=== PATIENT | male | born 1945 | race Caucasian/White ===

== ENCOUNTER 2023-09-21 07:53 | Inpatient (IN) | payer MEDICARE, BC ==
[2023-09-21] MEDS ORDERED: Glucagon,Human Recombinant 1 MG Vial IM PRN (14:59)
[2023-09-21] MEDS ORDERED: 50% Dextrose in Water 50 ML Syringe IVPUSH PRN (14:59)
[2023-09-21] MEDS ORDERED: Ampicillin 2 GM Vial IV SCH (15:00)
[2023-09-21] MEDS ORDERED: BETAMETHASONE VALERATE 0.1% TOP PRN (15:25)
[2023-09-21] MEDS: Ampicillin 2 GM in Sodium Chloride 0.9% 100 ML IV SCH (16:04)
[2023-09-21] MEDS: cefTRIAXone 2 GM Vial IVPUSH SCH (16:42)
[2023-09-21] MEDS ORDERED: Insulin Lispro 100 Unit/ML 3 ML KwikPen SUBCUT ONE (17:55)
[2023-09-21] MEDS: Cyclobenzaprine 10 MG Tab PO PRN (18:00)
[2023-09-21] MEDS: Insulin Lispro 100 Unit/ML 3 ML KwikPen SUBCUT SCH (18:01)
[2023-09-21] MEDS: Valsartan 40 MG Tab PO SCH (21:05)
[2023-09-21] MEDS: Melatonin 3 MG Tab PO SCH (21:06)
[2023-09-21] MEDS: Calcium Carbonate 500 MG Tablet PO SCH (21:06)
[2023-09-21] MEDS: Apixaban 5 MG Tab PO SCH (21:06)
[2023-09-21] MEDS: Simvastatin 20 MG Tab PO SCH (21:06)
[2023-09-21] MEDS: XYLITOL PO SCH (21:07)
[2023-09-21] MEDS: Pregabalin 25 MG Cap PO SCH (21:14)
[2023-09-21] MEDS ORDERED: Insulin Glargine,Human Rec. Analog 100 Units/ML 3 ML Pen SUBCUT ONE (21:17)
[2023-09-21] MEDS: Insulin Glargine,Human Rec. Analog 100 Units/ML 3 ML Pen SUBCUT SCH (21:19)
[2023-09-21] MEDS: Sodium Chloride 0.9% 10 ML Syringe IV SCH (21:32)
[2023-09-22] MEDS: Pantoprazole 40 MG Tab.CR PO SCH (05:06)
[2023-09-22] MEDS: Ferrous Sulfate 325 MG Tab PO SCH (08:12)
[2023-09-22] MEDS: Tamsulosin 0.4 MG Cap.ER PO SCH (08:12)
[2023-09-22] MEDS: Aspirin 81 MG Tab.EC PO SCH (08:12)
[2023-09-22] MEDS: amLODIPine 10 MG Tab PO SCH (08:13)
[2023-09-22] MEDS: Magnesium Oxide 400 MG Tab PO SCH (08:13)
[2023-09-22] MEDS: Allopurinol 100 MG Tab PO SCH (08:14)
[2023-09-22] MEDS: Cyanocobalamin (Vitamin B12) 500 MCG Tab PO SCH (08:14)
[2023-09-22] MEDS: Metoprolol Succinate 50 MG Tab.ER PO SCH (08:14)
[2023-09-22] MEDS: Cholecalciferol (Vitamin D3) 5,000 UNIT Cap PO SCH (08:14)
[2023-09-22] MEDS: Multivitamins with Iron/Calcium/Folic Acid/Minerals Tab PO SCH (08:14)
[2023-09-23] MEDS: Acetaminophen 500 MG Tab PO PRN (08:22)
[2023-09-23] MEDS: guaiFENesin 600 MG Tab.ER PO PRN (14:14)
[2023-09-24] MEDS: guaiFENesin 600 MG Tab.ER PO PRN (01:15)
[2023-09-26] MEDS: Furosemide 40 MG Tab PO PRN (06:23)
[2023-09-26] MEDS: Loperamide 2 MG Cap PO PRN (14:50)
[2023-09-26] MEDS: Saccharomyces Boulardii (Probiotic) 250 MG Cap PO SCH (16:04)
[2023-09-27 06:48] LABS: BASOPHILS PERCENT AUTO 0.8 % (0.3-3.8); EOSINOPHILS ABSOLUTE AUTO 0.1 x10-3/uL (0.0-0.6); EOSINOPHILS PERCENT AUTO 2.3 % (0.1-6.8); HEMATOCRIT 29.7 % (38.3-50.1); HEMOGLOBIN 9.8 g/dL (12.9-17.7); LYMPHOCYTES ABSOLUTE AUTO 0.9 x10-3/uL (0.5-4.5); LYMPHOCYTES PERCENT AUTO 15.1 % (15.8-45.3); MEAN CORPUSCULAR HEMOGLOBIN 30.7 pg (27.0-33.3); MEAN CORPUSCULAR HGB CONC 33.1 g/dL (28.7-35.3); MEAN CORPUSCULAR VOLUME 92.7 fL (80.8-98.7); MEAN PLATELET VOLUME 8.5 fL (6.7-11.0); MONOCYTES ABSOLUTE AUTO 0.6 x10-3/uL (0.0-1.2); MONOCYTES PERCENT AUTO 11.1 % (5.5-15.2); NEUTROPHILS ABSOLUTE AUTO 4.1 x10-3/uL (1.7-6.9); NEUTROPHILS PERCENT AUTO 70.7 % (40.3-71.8); PLATELET COUNT,PLT 134 x10(3)uL (117-477); RED BLOOD CELL COUNT 3.21 x10(6)uL (3.90-5.90); RED CELL DISTRIBUTION WIDTH 13.4 % (12.4-15.0); WHITE BLOOD CELL COUNT,WBC 5.9 x10-3/uL (3.2-10.1)
[2023-09-27 06:58] LABS: CREATININE 1.5 mg/dL (0.70-1.30); EST CRCL DRUG DOSING (CG) 46.94 mL/min
[2023-09-27] MEDS: Benzonatate 100 MG Cap PO PRN (08:45)
[2023-09-27] MEDS ORDERED: Saccharomyces Boulardii (Probiotic) 250 MG Cap PO SCH ×2 (09:00)
[2023-09-28] MEDS: XYLITOL PO PRN (21:29)
[2023-09-28] MEDS: [UNRECOGNIZED DRUG - OTHER] PO SCH (21:29)
[2023-09-29] MEDS: TART CHERRY EXTRACT 1200 MG PO SCH (08:14)
[2023-09-30] MEDS: Hydrocortisone 1% Crm 30 GM Tube TOP ONE (10:56)
[2023-09-30] MEDS ORDERED: Insulin Glargine,Human Rec. Analog 100 Units/ML 3 ML Pen SUBCUT ONE (21:02)
[2023-10-04 07:03] LABS: BASOPHILS PERCENT AUTO 0.4 % (0.3-3.8); EOSINOPHILS ABSOLUTE AUTO 0.2 x10-3/uL (0.0-0.6); EOSINOPHILS PERCENT AUTO 3.3 % (0.1-6.8); HEMATOCRIT 30.4 % (38.3-50.1); HEMOGLOBIN 10.1 g/dL (12.9-17.7); LYMPHOCYTES ABSOLUTE AUTO 1.4 x10-3/uL (0.5-4.5); LYMPHOCYTES PERCENT AUTO 19.3 % (15.8-45.3); MEAN CORPUSCULAR HEMOGLOBIN 30.9 pg (27.0-33.3); MEAN CORPUSCULAR HGB CONC 33.4 g/dL (28.7-35.3); MEAN CORPUSCULAR VOLUME 92.6 fL (80.8-98.7); MEAN PLATELET VOLUME 8.5 fL (6.7-11.0); MONOCYTES ABSOLUTE AUTO 0.6 x10-3/uL (0.0-1.2); MONOCYTES PERCENT AUTO 8.6 % (5.5-15.2); NEUTROPHILS ABSOLUTE AUTO 5.1 x10-3/uL (1.7-6.9); NEUTROPHILS PERCENT AUTO 68.4 % (40.3-71.8); PLATELET COUNT,PLT 175 x10(3)uL (117-477); RED BLOOD CELL COUNT 3.28 x10(6)uL (3.90-5.90); RED CELL DISTRIBUTION WIDTH 13.6 % (12.4-15.0); WHITE BLOOD CELL COUNT,WBC 7.4 x10-3/uL (3.2-10.1)
[2023-10-04 07:09] LABS: CREATININE 1.5 mg/dL (0.70-1.30); EST CRCL DRUG DOSING (CG) 46.94 mL/min
[2023-10-04] MEDS: Diclofenac Sodium 1% Gel 100 GM Tube TOP PRN (16:03)
[2023-10-09] MEDS ORDERED: Insulin Glargine,Human Rec. Analog 100 Units/ML 3 ML Pen SUBCUT ONE (20:50)
[2023-10-11 05:36] LABS: BASOPHILS PERCENT AUTO 0.5 % (0.3-3.8); EOSINOPHILS ABSOLUTE AUTO 0.4 x10-3/uL (0.0-0.6); EOSINOPHILS PERCENT AUTO 5.9 % (0.1-6.8); LYMPHOCYTES ABSOLUTE AUTO 1.1 x10-3/uL (0.5-4.5); LYMPHOCYTES PERCENT AUTO 17.8 % (15.8-45.3); MEAN CORPUSCULAR HEMOGLOBIN 30.9 pg (27.0-33.3); MEAN CORPUSCULAR HGB CONC 33.3 g/dL (28.7-35.3); MEAN CORPUSCULAR VOLUME 92.9 fL (80.8-98.7); MEAN PLATELET VOLUME 8.1 fL (6.7-11.0); MONOCYTES ABSOLUTE AUTO 0.6 x10-3/uL (0.0-1.2); MONOCYTES PERCENT AUTO 8.9 % (5.5-15.2); NEUTROPHILS ABSOLUTE AUTO 4.2 x10-3/uL (1.7-6.9); NEUTROPHILS PERCENT AUTO 66.9 % (40.3-71.8); PLATELET COUNT,PLT 142 x10(3)uL (117-477); RED CELL DISTRIBUTION WIDTH 14.2 % (12.4-15.0); WHITE BLOOD CELL COUNT,WBC 6.3 x10-3/uL (3.2-10.1)
[2023-10-11 05:40] LABS: CREATININE 1.5 mg/dL (0.70-1.30); EST CRCL DRUG DOSING (CG) 46.94 mL/min
[2023-10-11] MEDS ORDERED: traZODone 100 MG Tab PO PRN (07:51)
[2023-10-11] MEDS: traZODone 50 MG Tab PO PRN (22:32)
[2023-10-13] MEDS: Insulin Glargine,Human Rec. Analog 100 Units/ML 3 ML Pen SUBCUT SCH (08:37)
[2023-10-18 07:00] LABS: BASOPHILS PERCENT AUTO 0.5 % (0.3-3.8); EOSINOPHILS ABSOLUTE AUTO 0.4 x10-3/uL (0.0-0.6); EOSINOPHILS PERCENT AUTO 5.9 % (0.1-6.8); HEMOGLOBIN 9.8 g/dL (12.9-17.7); LYMPHOCYTES ABSOLUTE AUTO 1.3 x10-3/uL (0.5-4.5); MEAN CORPUSCULAR HEMOGLOBIN 31.3 pg (27.0-33.3); MEAN CORPUSCULAR HGB CONC 33.8 g/dL (28.7-35.3); MEAN CORPUSCULAR VOLUME 92.5 fL (80.8-98.7); MEAN PLATELET VOLUME 8.3 fL (6.7-11.0); MONOCYTES ABSOLUTE AUTO 0.6 x10-3/uL (0.0-1.2); MONOCYTES PERCENT AUTO 8.4 % (5.5-15.2); NEUTROPHILS ABSOLUTE AUTO 4.5 x10-3/uL (1.7-6.9); NEUTROPHILS PERCENT AUTO 66.2 % (40.3-71.8); PLATELET COUNT,PLT 169 x10(3)uL (117-477); RED BLOOD CELL COUNT 3.14 x10(6)uL (3.90-5.90); RED CELL DISTRIBUTION WIDTH 14.9 % (12.4-15.0); WHITE BLOOD CELL COUNT,WBC 6.8 x10-3/uL (3.2-10.1)
[2023-10-18 07:10] LABS: CREATININE 1.5 mg/dL (0.70-1.30); EST CRCL DRUG DOSING (CG) 46.94 mL/min
[2023-10-20] MEDS: Simvastatin 10 MG Tab PO SCH (20:38)
[2023-10-22 17:23] LABS: HIV 1,2 COMBO ANTIGEN/ANTIBODY Negative (Negative)
[2023-10-25 07:03] LABS: BASOPHILS PERCENT AUTO 0.6 % (0.3-3.8); EOSINOPHILS ABSOLUTE AUTO 0.4 x10-3/uL (0.0-0.6); EOSINOPHILS PERCENT AUTO 5.7 % (0.1-6.8); HEMATOCRIT 29.8 % (38.3-50.1); LYMPHOCYTES ABSOLUTE AUTO 1.3 x10-3/uL (0.5-4.5); LYMPHOCYTES PERCENT AUTO 19.3 % (15.8-45.3); MEAN CORPUSCULAR HEMOGLOBIN 30.4 pg (27.0-33.3); MEAN CORPUSCULAR HGB CONC 33.4 g/dL (28.7-35.3); MEAN CORPUSCULAR VOLUME 90.8 fL (80.8-98.7); MEAN PLATELET VOLUME 7.8 fL (6.7-11.0); MONOCYTES ABSOLUTE AUTO 0.5 x10-3/uL (0.0-1.2); MONOCYTES PERCENT AUTO 7.6 % (5.5-15.2); NEUTROPHILS ABSOLUTE AUTO 4.3 x10-3/uL (1.7-6.9); NEUTROPHILS PERCENT AUTO 66.8 % (40.3-71.8); PLATELET COUNT,PLT 161 x10(3)uL (117-477); RED BLOOD CELL COUNT 3.28 x10(6)uL (3.90-5.90); RED CELL DISTRIBUTION WIDTH 15.3 % (12.4-15.0); WHITE BLOOD CELL COUNT,WBC 6.5 x10-3/uL (3.2-10.1)
[2023-10-25 07:13] LABS: CREATININE 1.6 mg/dL (0.70-1.30); EST CRCL DRUG DOSING (CG) 34.94 mL/min
[2023-10-25] MEDS ORDERED: Insulin Glargine,Human Rec. Analog 100 Units/ML 3 ML Pen SUBCUT ONE (09:12)
== END 2023-10-26 15:08 | disposition home or self-care (01) | DRG 949 ==
LOC: FB.MS 13:20
PROVIDERS: ADMIT Internal Medicine; ATTEND Family Medicine
DX: T82.6XXD Infection and inflammatory reaction due to cardiac valve prosthesis, subsequent encounter (principal); R78.81 Bacteremia; B95.2 Enterococcus as the cause of diseases classified elsewhere; I35.8 Other nonrheumatic aortic valve disorders; I48.0 Paroxysmal atrial fibrillation; I73.9 Peripheral vascular disease, unspecified; E78.5 Hyperlipidemia, unspecified; E66.9 Obesity, unspecified; I44.7 Left bundle-branch block, unspecified; D50.9 Iron deficiency anemia, unspecified; N40.0 Benign prostatic hyperplasia without lower urinary tract symptoms; E11.42 Type 2 diabetes mellitus with diabetic polyneuropathy; E11.22 Type 2 diabetes mellitus with diabetic chronic kidney disease; N18.30 Chronic kidney disease, stage 3 unspecified; M54.50 Low back pain, unspecified; G89.29 Other chronic pain; I12.9 Hypertensive chronic kidney disease with stage 1 through stage 4 chronic kidney disease, or unspecified chronic kidney disease; D63.1 Anemia in chronic kidney disease; R53.81 Other malaise; Z90.5 Acquired absence of kidney; Z68.31 Body mass index [BMI] 31.0-31.9, adult
CPT/HCPCS: 36415; 71046; 82565; 82947; 84460; 85025; 86140; 87389; 93005; 94150; 97110-GO; 97110-GP; 97112-GP; 97161-GP; 97165-GO; 97530-GP; A9270-GY; J0290; J0696; J1815; J1815-GY; J3490

== ENCOUNTER 2024-07-06 14:12 | Inpatient (IN) | payer MEDICARE, BC ==
[2024-07-06] MEDS ORDERED: Glucagon,Human Recombinant 1 MG Vial IM PRN ×2 (17:08→17:12)
[2024-07-06] MEDS ORDERED: Albuterol 6.7 GM Inhaler INH PRN (17:08)
[2024-07-06] MEDS ORDERED: Cyclobenzaprine 10 MG Tab PO PRN (17:08)
[2024-07-06] MEDS ORDERED: 50% Dextrose in Water 50 ML Syringe IVPUSH PRN ×2 (17:08→17:12)
[2024-07-06] MEDS: Insulin Lispro 100 Unit/ML 3 ML KwikPen SUBCUT SCH (18:13)
[2024-07-06] MEDS: Melatonin 3 MG Tab PO SCH (20:49)
[2024-07-06] MEDS: Valsartan 40 MG Tab PO SCH (20:49)
[2024-07-06] MEDS: atorvaSTATin 10 MG Tab PO SCH (20:49)
[2024-07-06] MEDS: Oseltamivir 30 MG Cap PO SCH (20:49)
[2024-07-06] MEDS: VANCOmycin 125 MG Cap PO SCH (20:50)
[2024-07-06] MEDS: Pregabalin 25 MG Cap PO SCH (20:50)
[2024-07-06] MEDS: guaiFENesin 600 MG Tab.ER PO SCH (20:50)
[2024-07-06] MEDS: Apixaban 5 MG Tab PO SCH (20:50)
[2024-07-06] MEDS: Insulin Glargine,Human Rec. Analog 100 Units/ML 3 ML Pen SUBCUT SCH (20:56)
[2024-07-07] MEDS: Pantoprazole 40 MG Tab.CR PO SCH (06:09)
[2024-07-07] MEDS: Tamsulosin 0.4 MG Cap.ER PO SCH (09:16)
[2024-07-07] MEDS: Spironolactone 25 MG Tab PO SCH (09:16)
[2024-07-07] MEDS: Empagliflozin 10 MG Tab PO SCH (09:16)
[2024-07-07] MEDS: Ferrous Sulfate 325 MG Tab PO SCH (09:16)
[2024-07-07] MEDS: Furosemide 40 MG Tab PO SCH (09:17)
[2024-07-07] MEDS: Methimazole 5 MG Tab PO SCH (09:17)
[2024-07-07] MEDS: Calcium Carbonate 500 MG Tablet PO SCH (09:18)
[2024-07-07] MEDS: Multivitamin Tab PO SCH (09:18)
[2024-07-07] MEDS: Metoprolol Succinate 50 MG Tab.ER PO SCH (09:19)
[2024-07-07] MEDS: Cholecalciferol (Vitamin D3) 5,000 UNIT Cap PO SCH (09:20)
[2024-07-07] MEDS: Allopurinol 100 MG Tab PO SCH (09:20)
[2024-07-09] MEDS: Non-Formulary Medication 1 Each (Cyanocobalamin (Vitamin B-12) [Vitamin B-12] 100 MCG Tabl PO SCH (10:53)
[2024-07-09] MEDS: Non-Formulary Medication 1 Each PO SCH (10:53)
[2024-07-09] MEDS: Non-Formulary Medication 1 Each (Zinc Sulfate [Zinc] 50 MG Tablet) PO SCH (10:53)
[2024-07-09] MEDS: TART CHERRY PO SCH (10:53)
[2024-07-09] MEDS: Acetaminophen 500 MG Tab PO PRN (13:40)
== END 2024-07-11 12:35 | disposition home or self-care (01) | DRG 948 ==
LOC: FB.MS 16:34
PROVIDERS: ADMIT Internal Medicine; ATTEND Family Medicine
DX: R53.81 Other malaise (principal); A04.72 Enterocolitis due to Clostridium difficile, not specified as recurrent; I13.0 Hypertensive heart and chronic kidney disease with heart failure and stage 1 through stage 4 chronic kidney disease, or unspecified chronic kidney disease; Z68.25 Body mass index [BMI] 25.0-25.9, adult; J11.1 Influenza due to unidentified influenza virus with other respiratory manifestations; I48.0 Paroxysmal atrial fibrillation; E11.22 Type 2 diabetes mellitus with diabetic chronic kidney disease; I50.9 Heart failure, unspecified; E78.2 Mixed hyperlipidemia; E11.40 Type 2 diabetes mellitus with diabetic neuropathy, unspecified; N18.30 Chronic kidney disease, stage 3 unspecified; N40.0 Benign prostatic hyperplasia without lower urinary tract symptoms; G89.29 Other chronic pain; M54.9 Dorsalgia, unspecified; D50.9 Iron deficiency anemia, unspecified; I25.10 Atherosclerotic heart disease of native coronary artery without angina pectoris; E11.51 Type 2 diabetes mellitus with diabetic peripheral angiopathy without gangrene; M81.0 Age-related osteoporosis without current pathological fracture; E21.3 Hyperparathyroidism, unspecified; Z98.49 Cataract extraction status, unspecified eye; Z98.890 Other specified postprocedural states; Z79.899 Other long term (current) drug therapy; Z95.2 Presence of prosthetic heart valve; Z79.01 Long term (current) use of anticoagulants; Z79.4 Long term (current) use of insulin; Z87.891 Personal history of nicotine dependence
CPT/HCPCS: 97161-GP; 97165-GO; 97530-GO; 97530-GP; 99305; 99309; 99315; A9270-GY; J1815; J1815-GY

== ENCOUNTER 2024-11-27 08:11 | Inpatient (IN) | payer MEDICARE, BC ==
[2024-11-27] MEDS ORDERED: 50% Dextrose in Water 50 ML Syringe IVPUSH PRN ×2 (12:46→12:49)
[2024-11-27] MEDS: Insulin Lispro 100 Unit/ML 3 ML KwikPen SUBCUT SCH (17:52)
[2024-11-28] MEDS: Cholecalciferol (Vitamin D3) 5,000 UNIT Cap PO SCH (08:05)
[2024-11-28] MEDS: Metoprolol Succinate 100 MG Tab.ER PO SCH (08:08)
[2024-11-28] MEDS: Betamethasone Dipropionate/Clotrimazole 0.05-1% Crm 15 GM Tube TOP SCH (10:30)
[2024-11-28] MEDS: Insulin Glargine,Human Rec. Analog 100 Units/ML 3 ML Pen SUBCUT SCH (12:23)
== END 2024-12-02 11:45 | disposition home health service (06) | DRG 948 ==
LOC: FB.MS 11:50
PROVIDERS: ADMIT Family Medicine; ATTEND Internal Medicine
DX: R53.81 Other malaise (principal); I13.0 Hypertensive heart and chronic kidney disease with heart failure and stage 1 through stage 4 chronic kidney disease, or unspecified chronic kidney disease; I50.22 Chronic systolic (congestive) heart failure; I48.0 Paroxysmal atrial fibrillation; N18.30 Chronic kidney disease, stage 3 unspecified; Z66 Do not resuscitate; D69.6 Thrombocytopenia, unspecified; E11.51 Type 2 diabetes mellitus with diabetic peripheral angiopathy without gangrene; K21.9 Gastro-esophageal reflux disease without esophagitis; N40.0 Benign prostatic hyperplasia without lower urinary tract symptoms; M54.9 Dorsalgia, unspecified; G47.00 Insomnia, unspecified; M81.0 Age-related osteoporosis without current pathological fracture; E66.9 Obesity, unspecified; E11.22 Type 2 diabetes mellitus with diabetic chronic kidney disease; Z85.528 Personal history of other malignant neoplasm of kidney; Z98.1 Arthrodesis status; Z98.49 Cataract extraction status, unspecified eye; Z86.73 Personal history of transient ischemic attack (TIA), and cerebral infarction without residual deficits; Z95.2 Presence of prosthetic heart valve; Z91.048 Other nonmedicinal substance allergy status; Z79.01 Long term (current) use of anticoagulants; Z79.899 Other long term (current) drug therapy; Z79.4 Long term (current) use of insulin; Z79.52 Long term (current) use of systemic steroids; Z86.718 Personal history of other venous thrombosis and embolism; Z95.0 Presence of cardiac pacemaker; Z90.89 Acquired absence of other organs; Z90.49 Acquired absence of other specified parts of digestive tract; Z90.5 Acquired absence of kidney; Z98.890 Other specified postprocedural states; Z68.25 Body mass index [BMI] 25.0-25.9, adult
CPT/HCPCS: 71046; 82947; 97110-GP; 97116-GP; 97161-GP; 97165-GO; 97530-GO; 97530-GP; 97535-GO; 99306; 99315; A9270-GY; J1815-GY